=== PATIENT | female | born 1955 | race Caucasian/White ===

== ENCOUNTER → 2017-07-30 | Outpatient (CLI) | payer BC ==
[~2017-07-30] MED LIST: CLX20 PO; FLX10 PO; LRT5 PO; OMEG10007 PO; PRN10125 PO
[2017-07-30 12:56] LABS: BASO % 0.9 %; BASO ABS # 0.05 K/uL (0-0.2); EOS ABS # 0.34 K/uL (0-0.5); HEMATOCRIT 40.4 % (37-47); HEMOGLOBIN 13.6 g/dL (12.0-16.0); IG# 0.01 K/uL (0.00-0.02); LYMPH % 37.9 %; LYMPH ABS # 2.13 K/uL (1.2-3.4); MEAN CELL VOLUME 90.2 fL (80-100); MEAN CORPUSCULAR HEMOGLOBIN 30.4 pg (25-34); MEAN CORPUSCULAR HGB CONC 33.7 g/dl (32-36); MEAN PLATELET VOLUME 10.7 fL (7.4-10.4); MONO % 8.5 %; MONO ABS # 0.48 K/uL (0.11-0.59); NEUT % 46.5 %; NEUT ABS # 2.61 K/uL (1.4-6.5); PLATELET COUNT 247 K/uL (130-400); RED CELL DISTRIBUTION WIDTH SD 42.9 fL (36.4-46.3); WHITE BLOOD COUNT 5.62 K/uL (4.8-10.8)
[2017-07-30 14:33] LABS: ALBUMIN 3.5 gm/dl (3.4-5.0); ALKALINE PHOSPHATASE 89 U/L (45-117); ALT/SGPT 90 U/L (12-78); AST/SGOT 49 U/L (15-37); BLOOD UREA NITROGEN 16 mg/dl (7-18); CALCIUM 8.8 mg/dl (8.5-10.1); CARBON DIOXIDE 26 mmol/L (21-32); CREATININE 0.64 mg/dl (0.60-1.20); GLUCOSE 107 mg/dl (70-99); POTASSIUM 3.8 mmol/L (3.5-5.1); SODIUM 137 mmol/L (136-145); TOTAL PROTEIN 7.3 gm/dl (6.4-8.2)
[2017-07-30 14:46] LABS: CHOLESTEROL 191 mg/dl (0-200); LDL CHOLESTEROL CALCULATED 126 mg/dl
== END | disposition home or self-care (01) ==
LOC: C.LABMFLN 08:02
PROVIDERS: ATTEND Family Medicine
DX: I10 Essential (primary) hypertension (principal); E78.5 Hyperlipidemia, unspecified; R63.5 Abnormal weight gain; G47.33 Obstructive sleep apnea (adult) (pediatric)